=== PATIENT | male | born 1955 | race African-American/Black ===

== ENCOUNTER 2018-09-14 14:49 | Emergency (ER) | payer MEDICARE, OTHER ==
[2018-09-14] MEDS: DEXAMETHASONE 4 MG/ML 1 ML INJ IM (16:20)
[2018-09-14] MEDS: DEXAMETHASONE 10 MG/ML 1 ML INJ IM (16:25)
== END 2018-09-14 16:30 | disposition home or self-care (01) ==
LOC: FTE 14:49
DX: M25.562 Pain in left knee (principal); I12.0 Hypertensive chronic kidney disease with stage 5 chronic kidney disease or end stage renal disease; N18.6 End stage renal disease
CPT/HCPCS: 96372; 99284-25